=== PATIENT | female | born 1990 | race Caucasian/White ===

== ENCOUNTER 2022-05-27 10:15 | Day surgery (SDC) | payer OTHER ==
[2022-05-25 16:05] VITALS: BMI 43.2
[~2022-05-27 10:15] MED LIST: LACTATED RINGERS 1,000 ML IV SCH; TETRACAINE 0.5% OPHTH (PF) DROPS 4 ML BTL OP PRN
[2022-05-27 10:57] VITALS: RESP 16; TEMP 97.8
[2022-05-27] MEDS ORDERED: LACTATED RINGERS 1,000 ML IV ONE (11:00)
[2022-05-27] MEDS: CYCLOPENTOLATE 1% OPHTH SOLN 2 ML BTL OP PRN ×3 (11:08→11:20)
[2022-05-27] MEDS: PHENYLEPHRINE 2.5% OPHTH DRP 2ML OP PRN ×3 (11:11→11:23)
[2022-05-27] MEDS ORDERED: MIDAZOLAM 2 MG/2 ML VIAL IVP ONE (11:29)
[2022-05-27] MEDS ORDERED: fentaNYL (PF) 50 MCG/ML 2 ML AMP ONE (13:00)
[2022-05-27] MEDS ORDERED: MIDAZOLAM 2 MG/2 ML VIAL ONE (13:00)
[2022-05-27] MEDS ORDERED: HYALURONATE SODIUM INTRAOCULAR 1 EACH SYRINGE (12MG/ML) INTRAOCULA ONE (13:23)
[2022-05-27] MEDS ORDERED: LIDOCAINE 1% (PF) 10MG/ML VIAL MISCELLANE ONE (13:24)
[2022-05-27] MEDS ORDERED: BALANCED SALT IRRIG SOLN COMB2 15 ML IRRIG.SOLN IRRIGATION ONE (13:24)
[2022-05-27] MEDS: MOXIFLOXACIN HCL 0.5% DROPS 3 ML BTL OP PRN ×2 (13:25→13:33)
[2022-05-27] MEDS: TIMOLOL 0.5% OPHTH DROPS 5 ML BTL OP PRN ×2 (13:25→13:33)
[2022-05-27] MEDS ORDERED: EPINEPHrine (PF) 0.3 ML in BALANCED SALT IRRIG SOLN COMB2 500 ML IRRIGATION ONE (13:26)
--- NOTE | 2022-05-27 13:34 | P.OP ---
Date of Procedure: 05/27/22 Preoperative Diagnosis: NS & CS Postoperative Diagnosis: same Procedure(s) Performed: PIOL< OS Implants: [id number] 17.0 Anesthesia: MAC Surgeon: Mikhail Carvajal Pathology: none sent Condition: stable Disposition: same day Indications for Procedure: blurry vision Operative Findings: no complications
[2022-05-27 14:03] VITALS: BP 119/79; PULSE 79
--- NOTE | 2022-05-28 17:06 | OP ---
OPERATIVE REPORT PREOPERATIVE DIAGNOSES: Nuclear sclerosis and cortical sclerosis, right eye. POSTOPERATIVE DIAGNOSES: Nuclear sclerosis and cortical sclerosis, right eye. OPERATION: Phacoemulsification of cataract and interocular lens implant, right eye. ESTIMATED BLOOD LOSS: Zero. SPECIMEN TAKEN: None. NARRATIVE: After obtaining the appropriate consent, the patient was brought to the operating room where the patient was placed under cardiac monitoring and prepped and draped in the usual sterile manner. At the 11 o'clock position, a 15-degree super sharp blade was used to create a paracentesis followed by instillation of 1% Xylocaine MPF 50:50 mix with BSS into the anterior chamber. This was followed by Amvisc viscoelastic to stabilize the anterior chamber. At the 9 o'clock position a self-sealing corneal flap incision was created using 2.8 mm alli keratome. A cystotome was used to initiate a continuous tear capsulorrhexis which was completed with the Utrata forceps. A Binkhorst cannula was used to hydrodissect the lens nucleus followed by hydrodelineation. Phacoemulsification of the lens was performed utilizing phaco chop in 11.26 seconds at 9% power. The remaining cortical material was removed using the irrigation aspiration mode followed by additional 1% Xylocaine MPF into the anterior chamber followed by viscoelastic to stabilize the capsular bag. A Bausch and Lomb MX60E 19.5-diopter posterior chamber lens was placed into the capsular bag without difficulty. The remaining viscoelastic material was removed from the anterior chamber with the irrigation/aspiration. Balanced salt solution was used to normalize the intraocular pressure. The incision was checked for watertight integrity. The patient then received 2 drops of 0.5% timolol followed by 2 drops Vigamox, was lightly patched and shielded in the usual manner. There were no complications from the procedure. The patient tolerated the procedure well and was returned to recovery in good condition. MMODL / IJN: [id number] /
== END 2022-05-27 14:20 | disposition home or self-care (01) ==
LOC: OR 10:15
PROVIDERS: ATTEND Ophthalmology
DX: H25.11 Age-related nuclear cataract, right eye (principal); F41.9 Anxiety disorder, unspecified; F31.9 Bipolar disorder, unspecified; I10 Essential (primary) hypertension; J45.909 Unspecified asthma, uncomplicated; Z79.899 Other long term (current) drug therapy; Z98.891 History of uterine scar from previous surgery
CPT/HCPCS: 81025; 66984; C1780; J2250; J0171; J3010; J2001

== ENCOUNTER 2023-11-22 06:33 | Day surgery (SDC) | payer OTHER ==
[2023-11-18 13:40] VITALS: BMI 55.5
--- NOTE | 2023-11-22 06:33 | P.GSHP ---
History of Present Illness H&P Date: 11/22/23 CHIEF COMPLAINT: GERD HISTORY OF PRESENT ILLNESS: The patient is a 33-year-old female who presents reports gastroesophageal reflux disease. Upper endoscopy was offered for further evaluation and management. PAST MEDICAL HISTORY: Please see list. PAST SURGICAL HISTORY: Please see list. MEDICATIONS: Please see list. ALLERGIES: Please see list. SOCIAL HISTORY: No illicit drug use FAMILY HISTORY: No reports of Crohn disease or ulcerative colitis. REVIEW OF ORGAN SYSTEMS: CONSTITUTIONAL: No reports of fevers or chills. GI: Denies any blood in stools or constipation. PHYSICAL EXAM: VITAL SIGNS: Stable GENERAL: Well-developed and pleasant in no acute distress. HEENT: No scleral icterus. Extraocular movements grossly intact. Moist buccal mucosa. NECK: Supple without lymphadenopathy. CHEST: Unlabored respirations. Equal bilateral excursions. CARDIOVASCULAR: Regular rate and rhythm. Distal 2+ pulses. ABDOMEN: Soft, nondistended. MUSCULOSKELETAL: No clubbing, cyanosis, or edema. ASSESSMENT: 1. Gastroesophageal reflux disease PLAN: 1. Recommend proceeding with an upper endoscopy Past Medical History Past Medical History: Asthma, Hypertension Additional Past Medical History / Comment(s): . History of Any Multi-Drug Resistant Organisms: None Reported Past Surgical History: Section Additional Past Surgical History / Comment(s): c sections x2, cat. removal on right Past Anesthesia/Blood Transfusion Reactions: No Reported Reaction Past Psychological History: Anxiety, Bipolar Additional Psychological History / Comment(s): "binge eating disorder" Smoking Status: Former smoker, Vaper Additional Past Alcohol Use History / Comment(s): has not vaped nicotine since October 2023 Past Drug Use History: None Reported - Past Family History Mother Family Medical History: Cancer Medications and Allergies Home Medications Medication Instructions Recorded Confirmed Type ARIPiprazole [Abilify] 5 mg PO BID 05/25/22 11/18/23 History Dextroamphetamine/Amphetamine 20 mg PO 1700 05/25/22 11/18/23 History [Adderall] lamoTRIgine [LaMICtal] 200 mg PO QAM 05/25/22 11/18/23 History Metoprolol Succinate (ER) [Toprol 100 mg PO DAILY 10/28/23 11/18/23 History XL] Albuterol Inhaler [Ventolin Hfa 1 - 2 puff INHALATION Q6H PRN 11/18/23 11/18/23 History Inhaler] Allergies Allergy/AdvReac Type Severity Reaction Status Date / Time No Known Allergies Allergy Verified 11/18/23 12:43
[2023-11-22] MEDS ORDERED: LIDOCAINE 1% (10MG/ML) FOR IV START INTRADERMA PRN (06:38)
[2023-11-22] MEDS: LACTATED RINGERS 1,000 ML IV SCH (07:29)
[2023-11-22] MEDS ORDERED: PROPOFOL 10 MG/ML 20 ML VIAL IV ONE (07:30)
[2023-11-22] MEDS ORDERED: MIDAZOLAM 2 MG/2 ML VIAL ONE (07:30)
[2023-11-22] MEDS ORDERED: KETAMINE HCL IN 0.9 % NACL 50 MG/5 ML SYRINGE ONE (07:30)
[2023-11-22] MEDS ORDERED: fentaNYL (PF) 50 MCG/ML 2 ML AMP ONE (07:30)
[2023-11-22] MEDS ORDERED: LIDOCAINE 1% INJ 10MG/ML (20 ML MDV) ONE (07:30)
[2023-11-22 07:36] VITALS: TEMP 97.6
--- NOTE | 2023-11-22 08:02 | P.PCN ---
Date of Procedure: 11/22/23 Description of Procedure: PREOPERATIVE DIAGNOSIS: Gastroesophageal reflux disease. Morbid obesity. POSTOPERATIVE DIAGNOSIS: Gastroesophageal reflux disease. Morbid obesity. Gastritis. Gastroparesis OPERATION: Esophagogastroduodenoscopy with biopsies along esophagus, antrum and duodenum SURGEON: Gila Onofre MD ANESTHESIA: MAC. INDICATIONS: The patient is a 33-year-old female who presents with reflux disease. Benefits and risks of the procedure were described. Informed consent was obtained. DESCRIPTION: The patient was brought into the endoscopy suite and laid in the left lateral decubitus position. An Olympus gastroscope was passed along the posterior oropharynx down to the distal esophagus where the squamocolumnar junction was encountered at 42 cm from the incisors. The stomach was entered and moderate food was found. Additional findings are listed below. Biopsies with cold forcep s were obtained of the antrum. The first through third portion of the duodenum was examined. Retroflexion of the scope confirmed Hill grade 1 lower esophageal valve. The squamocolumnar junction demonstrated LA grade B erosive esophagitis. The stomach was desufflated. The patient tolerated the procedure well. FINDINGS: Squamocolumnar junction 42 cm from the incisors. Diaphragmatic hiatus at 42 cm. Moderate food within the stomach Hill grade 1 lower esophageal valve. LA grade B erosive esophagitis. Biopsies obtained Biopsies obtained of the duodenum. Chronic gastritis with biopsies obtained. RECOMMENDATIONS: Assessment for gastroparesis advised Upper endoscopy as needed. Plan - Discharge Summary Discharge Rx Participant: No New Discharge Prescriptions: Continue Dextroamphetamine/Amphetamine [Adderall] 20 mg PO 1700 ARIPiprazole [Abilify] 5 mg PO BID Metoprolol Succinate (ER) [Toprol XL] 100 mg PO DAILY Albuterol Inhaler [Ventolin Hfa Inhaler] 1 - 2 puff INHALATION Q6H PRN PRN Reason: Wheezing lamoTRIgine [LaMICtal] 200 mg PO QAM Discharge Medication List ARIPiprazole [Abilify] 5 mg PO BID 05/25/22 [History] Dextroamphetamine/Amphetamine [Adderall] 20 mg PO 1700 05/25/22 [History] lamoTRIgine [LaMICtal] 200 mg PO QAM 05/25/22 [History] Metoprolol Succinate (ER) [Toprol XL] 100 mg PO DAILY 10/28/23 [History] Albuterol Inhaler [Ventolin Hfa Inhaler] 1 - 2 puff INHALATION Q6H PRN 11/18/23 [History] [place] [facility]s[place]Ref[place] [facility] [place] [place] 12[facility]01/23 3:00 pm Patient Instructions/Handouts: GERD (Gastroesophageal Reflux Disease) (ED) Discharge Disposition: HOME SELF-CARE
[2023-11-22 08:20] VITALS: BP 118/64; PULSE 80; RESP 16
== END 2023-11-22 08:38 | disposition home or self-care (01) ==
LOC: ORWHC2ENDO 06:33
PROVIDERS: ATTEND Surgery Plastic and Reconstructive Surgery
DX: K29.50 Unspecified chronic gastritis without bleeding (principal); K31.84 Gastroparesis; K21.00 Gastro-esophageal reflux disease with esophagitis, without bleeding; E66.01 Morbid (severe) obesity due to excess calories; I10 Essential (primary) hypertension; F31.9 Bipolar disorder, unspecified; J45.909 Unspecified asthma, uncomplicated; Z79.899 Other long term (current) drug therapy; Z87.891 Personal history of nicotine dependence; Z79.51 Long term (current) use of inhaled steroids; Z68.43 Body mass index [BMI] 50.0-59.9, adult
CPT/HCPCS: 81025; 43239; J2250; J2001; J3010; J2704; 88305

== ENCOUNTER → 2023-11-22 | Outpatient (CLI) | payer OTHER ==
[2023-11-22 09:56] LABS: INR 0.9 (<1.2); Partial Thromboplastin Time 24.8 sec (22.0-30.0); Prothrombin Time 9.9 sec (10.0-12.5)
[2023-11-22 15:40] LABS: HCT 41.5 % (37.2-46.3); HGB 13.1 g/dL (12.0-15.0); MCH 28.8 pg (27.0-32.0); MCHC 31.6 g/dL (32.0-37.0); MCV 91.2 FL (80.0-97.0); NRBC Per 100 WBC 0 X 10*3/uL (0.00-0.01); Platelet Count 394 X 10*3/uL (140-440); RBC 4.55 X 10*6/uL (4.10-5.20); RDW 13.7 % (11.5-14.5); WBC 9.18 X 10*3/uL (4.50-10.00)
[2023-11-22 17:53] LABS: Prealbumin 21.5 mg/dL (18.0-42.0)
[2023-11-23 13:52] LABS: Zinc, Serum 80 ug/dL (60-130)
[2023-11-24 01:23] LABS: Chol/HDL Ratio 5.96 Ratio; Magnesium 1.9 mg/dL (1.5-2.4)
[2023-11-24 01:24] LABS: % Iron Saturation 11.25 (12.00-45.00); ALT 52 U/L (8-44); AST 29 U/L (13-35); Albumin 4.4 g/dL (3.8-4.9); Alkaline Phosphatase 67 U/L (41-126); Blood Urea Nitrogen 10.8 mg/dL (9.0-27.0); Calcium 9.7 mg/dL (8.7-10.3); Carbon Dioxide 20.7 mmol/L (21.6-31.8); Chloride 103 mmol/L (96-109); Ferritin 77.8 ng/mL (10.0-291.0); Glucose 126 mg/dL (70-110); Iron 45 UG/DL (50-170); LDL Cholesterol,Calculated 80.8 mg/dL (0.0-131.0); Potassium 4.6 mmol/L (3.5-5.5); Sodium 141 mmol/L (135-145); Total Bilirubin <0.2 mg/dL (0.3-1.2); Total Iron Binding Capacity 400 UG/DL (228-460); Total Protein 6.4 g/dL (6.2-8.2)
== END | disposition home or self-care (01) ==
LOC: LABWHC1 08:49
PROVIDERS: ATTEND Surgery Plastic and Reconstructive Surgery
DX: E66.01 Morbid (severe) obesity due to excess calories (principal); E89.1 Postprocedural hypoinsulinemia; K91.2 Postsurgical malabsorption, not elsewhere classified; E55.9 Vitamin D deficiency, unspecified; E44.0 Moderate protein-calorie malnutrition; E44.1 Mild protein-calorie malnutrition; E45 Retarded development following protein-calorie malnutrition; E46 Unspecified protein-calorie malnutrition; K74.1 Hepatic sclerosis; N19 Unspecified kidney failure; T56.894A Toxic effect of other metals, undetermined, initial encounter; K50.90 Crohn's disease, unspecified, without complications; D50.8 Other iron deficiency anemias
CPT/HCPCS: 36415; 80053; 80061; 80307; 80323; 82306; 82525; 82607; 82728; 82746; 83036; 83540; 83550; 83735; 83970; 84100; 84134; 84255; 84425; 84443; 84590; 84630; 85027; 85610; 85730; 93005

== ENCOUNTER → 2023-12-15 | Outpatient (CLI) | payer OTHER ==
--- NOTE | 2023-12-15 14:15 | P.BASOAP ---
Subjective Progress Note Date: 12/15/23 She has gastroparesis. She wants the sleeve. She has severe thyroid disease. Just started 50 mcg levothyroxine. Has new diabetes. History of smoking. Objective - Vital Signs Vital signs: Vital Signs Temp 98.3 F 12/15/23 13:45 Pulse 97 12/15/23 13:45 Resp 14 12/15/23 13:45 BP 146/90 12/15/23 13:45 Pulse Ox FiO2 Intake & Output 12/14/23 12/15/23 12/15/23 18:59 06:59 18:59 Weight 149.232 kg Assessment/Plan Plan: Date: 12/15/23 Initial Weight: 151.046 kg Initial BMI: 55.4 Current Weight: 149.232 kg Current BMI: 54.7 Type of Surgery: Total Volume in Band: Previous Volume: Volume Removed: Volume Added: Band Size:
[2023-12-15 14:30] VITALS: BP 146/90; PULSE 97; RESP 14; TEMP 98.3; BMI 54.7
== END ==
LOC: BARWHC3 13:24
PROVIDERS: ATTEND Surgery Plastic and Reconstructive Surgery
DX: E66.01 Morbid (severe) obesity due to excess calories (principal); K31.84 Gastroparesis; E07.9 Disorder of thyroid, unspecified; F17.290 Nicotine dependence, other tobacco product, uncomplicated; Z79.890 Hormone replacement therapy; Z68.43 Body mass index [BMI] 50.0-59.9, adult
CPT/HCPCS: 99211

== ENCOUNTER → 2024-01-03 | Outpatient (CLI) | payer OTHER ==
[2024-01-03 13:32] VITALS: BMI 55.7
== END ==
LOC: BARWHC3 12:57
PROVIDERS: ATTEND Surgery Plastic and Reconstructive Surgery
DX: E66.01 Morbid (severe) obesity due to excess calories (principal); Z71.3 Dietary counseling and surveillance; Z68.43 Body mass index [BMI] 50.0-59.9, adult
CPT/HCPCS: 97804

== ENCOUNTER → 2024-02-11 | Outpatient (CLI) | payer OTHER ==
[2024-02-11 18:23] LABS: Basophils # (A) 0.03 X 10*3/uL (0.00-0.10); Basophils % (A) 0.3 %; Eosinophils # (A) 0.27 X 10*3/uL (0.04-0.35); Eosinophils % (A) 2.8 %; HCT 43.8 % (37.2-46.3); HGB 13.9 g/dL (12.0-15.0); Lymphocytes # (A) 2.28 X 10*3/uL (0.90-5.00); Lymphocytes % (A) 23.3 %; MCH 28.7 pg (27.0-32.0); MCHC 31.7 g/dL (32.0-37.0); MCV 90.3 FL (80.0-97.0); Monocytes # (A) 0.58 X 10*3/uL (0.20-1.00); Monocytes % (A) 5.9 %; NRBC Per 100 WBC 0 X 10*3/uL (0.00-0.01); Neutrophils # (A) 6.54 X 10*3/uL (1.80-7.70); Platelet Count 446 X 10*3/uL (140-440); RBC 4.85 X 10*6/uL (4.10-5.20); RDW 13.6 % (11.5-14.5); WBC 9.77 X 10*3/uL (4.50-10.00)
[2024-02-11 18:44] LABS: ALT 79 U/L (8-44); AST 84 U/L (13-35); Albumin 4.6 g/dL (3.8-4.9); Albumin/Globulin Ratio 1.84 Ratio (1.60-3.17); Alkaline Phosphatase 74 U/L (41-126); BUN/Creat Ratio 18.11 Ratio (12.00-20.00); Blood Urea Nitrogen 16.3 mg/dL (9.0-27.0); Calcium 9.8 mg/dL (8.7-10.3); Carbon Dioxide 24.1 mmol/L (21.6-31.8); Chloride 97 mmol/L (96-109); Globulin 2.5 g/dL (1.6-3.3); Glucose 108 mg/dL (70-110); Potassium 4.3 mmol/L (3.5-5.5); Sodium 138 mmol/L (135-145); Total Bilirubin 0.3 mg/dL (0.3-1.2); Total Protein 7.1 g/dL (6.2-8.2)
== END | disposition home or self-care (01) ==
LOC: LABWHC1 12:27
PROVIDERS: ATTEND Surgery Plastic and Reconstructive Surgery
DX: Z01.812 Encounter for preprocedural laboratory examination (principal)
CPT/HCPCS: 36415; 80053; 85025; 86850; 86900; 86901

== ENCOUNTER → 2024-03-10 | Outpatient (CLI) | payer OTHER | LOC: BARWHC3 08:57 | PROVIDERS: ATTEND Surgery Plastic and Reconstructive Surgery | DX: E66.01 Morbid (severe) obesity due to excess calories (principal) | CPT/HCPCS: 99211 ==

== ENCOUNTER → 2024-04-11 | Outpatient (CLI) | payer OTHER ==
[2024-04-11 15:39] VITALS: BP 120/75; PULSE 84; RESP 16; TEMP 98.7
--- NOTE | 2024-04-11 16:48 | P.SLEEP ---
History of Present Illness H&P Date: 04/11/24 41 female patient was referred to me for sleep apnea. The patient is morbidly obese and current body mass index is 49.3. Since the age of 25, the patient has gained more than 100 pounds. She has been quite symptomatic having loud snoring, and the has noted prolonged apneas occurring throughout the night. The patient reports sleep fragmentation and she wakes up multiple times in the middle of the night. She has managed to sleep on her side. During the day, she feels very much tired and fatigued. She takes naps during the day. She can easily fall asleep while driving long distances. As such, the patient has kept herself away from long journeys using her car. The patient goes to bed at around 11 PM and she wakes up 5:30 AM in the morning as the patient has dropped her child to school. On weekends, she gets out of bed at around 8:30 AM in the morning. During the day, she feels fatigued and tired and sleepy. She has issues with memory and concentration. She can easily fall asleep during day-to-day activities. Her current [place] score is 20. He drinks 1 or 2 cups of coffee in the morning. No history of alcoholism. No substance abuse. No head trauma. No nocturnal seizures. She has not been involved in a motor vehicle accident because of feeling drowsy or sleepy. No reported restlessness in lower extremities. She is a mouth breather and she had a dry mouth in the morning. No grinding of the teeth. More recently, the patient has undergone gastric bypass surgery. Surgery was uneventful and since her surgery the patient has already lost around 40 pounds. Her comorbid conditions include hypothyroidism, hypertension and bipolar disorder. No history of atrial fibrillation. No congestion heart failure. No stroke. She is sleeping on her side with the head of the bed elevated at around 20 degrees by utilizing several pillows. Review of Systems Constitutional: Reports daytime sleepiness, Reports fatigue, Reports weight gain Eyes: denies as per HPI, denies blurred vision, denies bulging eye, denies decreased vision, denies diplopia, denies discharge, denies dry eye, denies irritation, denies itching, denies pain, denies photophobia, denies loss of peripheral vision, denies loss of vision, denies tunnel vision/blind spots Ears: deny: decreased hearing, ear discharge, earache, tinnitus Ears, nose, mouth and throat: Reports as per HPI Breasts: absent: as per HPI, change in shape, gynecomastia, masses, nipple discharge, pain, skin changes, swelling Cardiovascular: Reports as per HPI Respiratory: Reports sleep apnea, Reports snoring Gastrointestinal: Reports as per HPI Genitourinary: Reports as per HPI Menstruation: Reports as per HPI Musculoskeletal: Reports as per HPI Musculoskeletal: absent: ankle pain, ankle stiffness, ankle swelling, as per HPI, elbow pain, elbow stiffness, elbow swelling, foot pain, foot stiffness, foot swelling, hand pain, hand stiffness, hand swelling, hip pain, hip stiffness, hip swelling, knee pain, knee stiffness, knee swelling, shoulder pain, shoulder stiffness, shoulder swelling, wrist pain, wrist stiffness, wrist swelling Integumentary: Reports as per HPI Neurological: Reports as per HPI Psychiatric: Reports change in sleep habits, Reports depression, Reports difficulty concentrating, Reports hypersomnia, Reports sleep disturbances Endocrine: Reports as per HPI Allergic/Immunologic: Reports as per HPI Past Medical History Past Medical History: Asthma, Hypertension, Thyroid Disorder Additional Past Medical History / Comment(s): . History of Any Multi-Drug Resistant Organisms: None Reported Past Surgical History: Bariatric Surgery, Section Additional Past Surgical History / Comment(s): c sections x2, cat. removal on right Past Anesthesia/Blood Transfusion Reactions: No Reported Reaction Past Psychological History: Anxiety, Bipolar Additional Psychological History / Comment(s): "binge eating disorder" Smoking Status: Former smoker Past Alcohol Use History: None Reported Additional Past Alcohol Use History / Comment(s): has not vaped nicotine since October 2023 Past Drug Use History: None Reported Additional Drug Use History / Comment(s): ex vaper - Past Family History Mother Family Medical History: Cancer Medications and Allergies Home Medications Medication Instructions Recorded Confirmed Type ARIPiprazole [Abilify] 5 mg PO DAILY 05/25/22 04/11/24 History lamoTRIgine [LaMICtal] 200 mg PO QAM 05/25/22 04/11/24 History Albuterol Inhaler [Ventolin Hfa 1 - 2 puff INHALATION Q6H PRN 11/18/23 03/02/24 History Inhaler] Levothyroxine Sodium [Synthroid] 75 mcg PO DAILY 12/15/23 04/11/24 History Losartan [Cozaar] 25 mg PO DAILY 02/09/24 04/11/24 History Metoprolol Succinate [Metoprolol 25 mg PO DAILY 02/09/24 04/11/24 History Succinate ER] Omeprazole 40 mg PO DAILY 04/11/24 04/11/24 History Allergies Allergy/AdvReac Type Severity Reaction Status Date / Time No Known Allergies Allergy Verified 03/02/24 13:49 Physical Exam Vitals: Vital Signs Temp Pulse Resp BP Pulse Ox 04/11/24 15:38 98.7 F 84 16 120/75 100 Intake and Output 04/11/24 04/11/24 04/11/24 06:59 14:59 22:59 Other: Weight 132.449 kg Morbidly obese and the patient carries a body mass index of 49.3. The patient appeared well nourished and normally developed. Vital signs as documented. Head exam is unremarkable. No scleral icterus or corneal arcus noted. Neck is without jugular venous distension, thyromegaly, or carotid bruits. The patient has a M allampati class I. Mild tonsillar enlargement. Carotid upstrokes are brisk bilaterally. Lungs are clear to auscultation and percussion. Cardiac exam reveals the PMI to be normally sized and situated. Rhythm is regular. First and second heart sounds normal. No murmurs, rubs or gallops. Abdominal exam reveals normal bowel sounds, no masses, no organomegaly and no aortic enlargement. Extremities are nonedematous and both femoral and pedal pulses are normal. Examination of the skin revealed no evidence of significant rashes, suspicious appearing nevi or other concerning lesions. Neurologically, the patient is awake and alert and the patient does not have any focal neurological deficit. Cranial nerves are essentially intact. Assessment and Plan Plan: Chronic hypersomnia with an [place] score of 20 with a very high clinical suspicion for obstructive sleep apnea as the patient has loud snoring, witnessed apneas and sleep fragmentation. Morbid obesity with a BMI of 49.3 Mallampati class IV with mild tonsillar enlargement Bariatric surgery and the patient has undergone gastric bypass surgery and she is in the process of losing weight Mild intermittent bronchial asthma Bipolar disorder Hypertension Hypothyroidism Plan High clinical suspicion for obstructive sleep apnea. The patient is already losing weight as the patient has undergone a bariatric surgery/gastric bypass. Continue same medication. Encouraged further weight loss. Will proceed with screening polysomnogram to evaluate the presence and severity of sleep apnea. T he patient would likely need a CPAP/BiPAP therapy once diagnosis of sleep apnea is confirmed. Keep same medication. Maintain good sleep hygiene measures. Avoid driving especially when feeling drowsy or sleepy. Maintain regular sleep schedule. Will continue to follow and make further recommendations based on results of sleep study. Sleep Note - Sleep Data ESS Total: 20 - Sleep Note Sleep Note: Temperature: 98.7 F Pulse Rate: 84 Respiratory Rate: 16 Blood Pressure: 120/75 SpO2: 100 Height: 5 ft 4.5 in Weight: 132.449 kg BMI: Neck Circumference: 19
== END ==
LOC: 3 N SLEEP 14:31
PROVIDERS: ATTEND Internal Medicine Critical Care Medicine
CPT/HCPCS: 99211

== ENCOUNTER 2024-04-25 19:19 | Outpatient (CLI) | payer OTHER ==
--- NOTE | 2024-05-02 16:21 | P.PCN ---
Date of Procedure: 04/25/24 Operative Findings: Polysomnography report Date of service is 04/25/2024 Pertinent history 41 female patient was referred to me for sleep apnea. The patient is morbidly obese and current body mass index is 49.3. Since the age of 25, the patient has gained more than 100 pounds. She has been quite symptomatic having loud snoring, and the has noted prolonged apneas occurring throughout the night. The patient reports sleep fragmentation and she wakes up multiple times in the middle of the night. She has managed to sleep on her side. During the day, she feels very much tired and fatigued. She takes naps during the day. She can easily fall asleep while driving long distances. As such, the patient has kept herself away from long journeys using her car. The patient goes to bed at around 11 PM and she wakes up 5:30 AM in the morning as the patient has dropped her child to school. On weekends, she gets out of bed at around 8:30 AM in the morning. During the day, she feels fatigued and tired and sleepy. She has issues with memory and concentration. She can easily fall asleep during day-to-day activities. Her current [place] score is 20. He drinks 1 or 2 cups of coffee in the morning. No history of alcoholism. No substance abuse. No head trauma. No nocturnal seizures. She has not been involved in a motor vehicle accident because of feeling drowsy or sleepy. No reported restlessness in lower extremities. She is a mouth breather and she had a dry mouth in the morning. No grinding of the teeth. More recently, the patient has undergone gastric bypass surgery. Surgery was uneventful and since her surgery the patient has already lost around 40 pounds. Her comorbid conditions include hypothyroidism, hypertension and bipolar disorder. No history of atrial fibrillation. No congestion heart failure. No stroke. She is sleeping on her side with the head of the bed elevated at around 20 degrees by utilizing several pillows. Pertinent physical findings The patient has a body mass index of 49 Technical description The patient was studied using a standard complex polysomnography protocol that included recording of the Lead II EKG, Central, occipital and frontal EEG, right and left outer canthus EOG, submental EMG, right and left anterior tibialis EMG, respiratory airflow by thermocouple and or pressure/flow transducer, respiratory efforts by abdominal and thoracic PVDF belts, oxygen saturation by cable oximetry. Position by observation synchronized the PSG. Equipment used: [employer]. Sleep characteristics The total recording duration was 484 minutes. Total sleep time was 430 minutes. The patient had a wake after sleep onset time of 22 minutes. The overall sleep efficiency was 88.8%. The sleep architecture was characterized by 2.2% stage I, 61.4% stage II, 18.3% stage III, and a total of 18.1% REM sleep. The sleep latency was 31.5 minutes. The total arousal index was 8.2. Respiratory analysis The sleep study showed a total of 157 obstructive events of which 1 was obstructive apnea, 1 was mixed apnea, and 155 were obstructive hypopneas with a resulting apnea-hypopnea index of 20.1. This is consistent with moderately severe obstructive sleep apnea. The patient's disease was worse during REM sleep and AHI during REM was as high as 56.2. Noted the patient also had 1 central apnea with a central apnea index of 0.1. Oxygenation analysis The baseline pulse ox was 95% while awake. Lowest oxygen saturation was 78% du ring sleep. The patient spent approximately 7 hours and 41 minutes of sleep time below pulse ox of 89%. Sleep continuity summary The patient had a total of 59 arousals with an index of 8.2. Respiratory arousal index was 1.3 Periodic limb movement summary none Cardiac summery average HR was 70 and the min HR 64 was and the max HR was 77 Assessment Obstructive sleep apnea, moderate in severity with an AHI of 20.1. Worse during REM sleep. Nocturnal oxygen desaturation secondary to obstructive sleep apnea. Minimum pulse ox was 78%. Chronic hypersomnia with an [place] score of 20 with loud snoring, witnessed apneas and sleep fragmentation. Morbid obesity with a BMI of 49.3 Mallampati class IV with mild tonsillar enlargement Bariatric surgery and the patient has undergone gastric bypass surgery and she is in the process of losing weight Mild intermittent bronchial asthma Bipolar disorder Hypertension Hypothyroidism Plan Proceed with CPAP titration for symptomatic obstructive sleep apnea Encourage weight loss Maintain regular sleep schedule and optimize sleep hygiene measures Will follow
== END 2024-04-26 05:20 | disposition home or self-care (01) ==
LOC: 3 N SLEEP 19:19
PROVIDERS: ATTEND Internal Medicine Critical Care Medicine
CPT/HCPCS: 95810

== ENCOUNTER 2024-05-30 19:22 | Outpatient (CLI) | payer OTHER ==
--- NOTE | 2024-06-06 22:42 | P.PCN ---
Date of Procedure: 05/30/24 Operative Findings: 41 female patient was referred to me for sleep apnea. The patient is morbidly obese and current body mass index is 49.3. Since the age of 25, the patient has gained more than 100 pounds. She has been quite symptomatic having loud snoring, and the has noted prolonged apneas occurring throughout the night. The patient reports sleep fragmentation and she wakes up multiple times in the middle of the night. She has managed to sleep on her side. During the day, she feels very much tired and fatigued. She takes naps during the day. She can easily fall asleep while driving long distances. As such, the patient has kept herself away from long journeys using her car. The patient goes to bed at around 11 PM and she wakes up 5:30 AM in the morning as the patient has dropped her child to school. On weekends, she gets out of bed at around 8:30 AM in the morning. During the day, she feels fatigued and tired and sleepy. She has issues with memory and concentration. She can easily fall asleep during day-to-day activities. Her current [place] score is 20. He drinks 1 or 2 cups of coffee in the morning. No history of alcoholism. No substance abuse. No head trauma. No nocturnal seizures. She has not been involved in a motor vehicle accident because of feeling drowsy or sleepy. No reported restlessness in lower extremities. She is a mouth breather and she had a dry mouth in the morning. No grinding of the teeth. More recently, the patient has undergone gastric bypass surgery. Surgery was uneventful and since her surgery the patient has already lost around 40 pounds. Her comorbid conditions include hypothyroidism, hypertension and bipolar disorder. No history of atrial fibrillation. No congestion heart failure. No stroke. She is sleeping on her side with the head of the bed elevated at around 20 degrees by utilizing several pillows. The patient underwent a sleep study on 04/25/2024 and the patient was found to have obstructive sleep apnea, moderate in severity with an AHI of 20.1. Based on that, the patient was asked to come into the sleep center to undergo a CPAP titration. Pertinent physical findings The patient has a body mass index of 49, weight is 292 Technical description The patient was studied using a standard complex polysomnography protocol that included recording of the Lead II EKG, Central, occipital and frontal EEG, right and left outer canthus EOG, submental EMG, right and left anterior tibialis EMG, respiratory airflow by thermocouple and or pressure/flow transducer, respiratory efforts by abdominal and thoracic PVDF belts, oxygen saturation by cable oximetry. Position by observation synchronized the PSG. Equipment used: [employer]. Stepwise CPAP titration was done to eliminate all obstructive respiratory events Sleep characteristics The total recording duration was 456.5 minutes. The total sleep time was 99.5 minutes. The latency to sleep onset was 9 minutes and the latest REM sleep was 68 minutes. The overall sleep efficiency was 87.5%. The sleep architecture was characterized by 24.9% REM sleep, 1% stage I sleep, 59.3% stage II sleep and 14.8% stage III sleep. The latency to REM sleep was 68 minutes and the total arousal index was 5.0 CPAP titration summary The patient was started on CPAP therapy and initially he was started a pressure of 4 cm of water pressure was gradually increased maintenance of 1 cm to reach a maximum CPAP pressure of 9 cm of water. This was a successful titration. The patient was studied in all sleep stages including REM sleep. The patient also was studied essentially studied and is advised body position without significant supine body position recording. Nevertheless, there was elevation of the obstructive respiratory events, improvement in arousal index, elimination of the nocturnal oxygen desaturations. Noted lowest recorded pulse ox was 87% and the patient had a minimum pulse ox of 88% during REM sleep. Sleep continuity summary The patient had a total of 23 arousals with an index of 5.0. Respiratory arousal index was 0.2 Periodic limb movement summary A total of 14 periodic limb movement activity with an index of 2.0. No arousals. Cardiac summary Average heart rate was 67 with a minimum heart rate of 62 and a maximum heart rate of 73 Assessment Obstructive sleep apnea, moderate in severity with an AHI of 20.1. Worse during REM sleep. The patient underwent a successful CPAP titration. There was elimination of the obstructive respiratory events and improvement in the patient's oxygenation while on CPAP therapy. Chronic hypersomnia with an [place] score of 20 Morbid obesity with a BMI of 49.3 Mallampati class IV with mild tonsillar enlargement Bariatric surgery and the patient has undergone gastric bypass surgery and she is in the process of losing weight Mild intermittent bronchial asthma Bipolar disorder Hypertension Hypothyroidism Plan Proceed with CPAP therapy with a CPAP pressure of 9 cm of water and C-Flex of 3. The patient will be offered a AirFit P10 small size nasal pillows. Encourage weight loss Maintain regular sleep schedule and optimize sleep hygiene measures Will follow and the patient will see him back in follow-up in 30 to 90 days to assess clinical response and compliancy to treatment.
== END 2024-05-31 04:45 | disposition home or self-care (01) ==
LOC: 3 N SLEEP 19:22
PROVIDERS: ATTEND Internal Medicine Critical Care Medicine
DX: G47.33 Obstructive sleep apnea (adult) (pediatric) (principal); G47.10 Hypersomnia, unspecified; E66.01 Morbid (severe) obesity due to excess calories; F31.9 Bipolar disorder, unspecified; I10 Essential (primary) hypertension; E03.9 Hypothyroidism, unspecified; J45.909 Unspecified asthma, uncomplicated; J35.1 Hypertrophy of tonsils; Z98.84 Bariatric surgery status; Z68.42 Body mass index [BMI] 45.0-49.9, adult; Z87.891 Personal history of nicotine dependence; Z79.899 Other long term (current) drug therapy; Z79.890 Hormone replacement therapy
CPT/HCPCS: 95811